=== PATIENT | male | born 1960 | race Caucasian/White ===

== ENCOUNTER 2018-12-21 07:38 | Emergency (ER) | payer MEDICAID ==
[~2018-12-21] VITALS: Ht 180.3 cm; Wt 98.0 kg
[~2018-12-21 07:38] MED LIST: CYCL-1 PO
[2018-12-21 07:47] VITALS: BP 168/93
[2018-12-21 08:19] LABS: CLARITY,URINE CLEAR (Clear); COLOR,URINE YELLOW (Yellow); GLUCOSE, URINE NEGATIVE (Neg); KETONES,URINE TRACE mg/dl (Neg); LEUKOCYTE ESTERASE ,URINE NEGATIVE (Neg); NITRITES, URINE NEGATIVE (Neg); OCCULT BLOOD,URINE NEGATIVE (Neg); PH,URINE 6.5 (4.8-8.0); PROTEIN,URINE NEGATIVE (Neg); UROBILINOGEN,URINE 0.2 E.U/dL (0.2-1.0)
[2018-12-21 08:22] LABS: UA COLLECTION TYPE CLN CATCH MIDSTREAM
== END 2018-12-21 09:14 | disposition home or self-care (01) ==
LOC: ER 07:40
DX: R31.9 Hematuria, unspecified (principal); Z90.49 Acquired absence of other specified parts of digestive tract; Z79.899 Other long term (current) drug therapy
CPT/HCPCS: 81003; 99283